=== PATIENT | female | born 1995 | race Caucasian/White ===

== ENCOUNTER 2017-06-28 18:27 | Emergency (ER) | payer OTHER ==
[~2017-06-28] VITALS: Ht 160 cm; Wt 81.7 kg
[~2017-06-28 18:27] MED LIST: DIFLUCAN200 MG PO; DOXYCYCLINE 10100 M1 PO; FLAGYL500 MG PO; IBUPROFEN 800800 M1 PO; OSELB75 PO; PHENERGAN 25 MG25 M1 PO
[2017-06-28] MEDS ORDERED: TYLENOL COLD &1 EACH PO (18:55)
[2017-06-28] MEDS ORDERED: IBUPROFEN 600600 M1 PO (18:55)
[2017-06-28 19:18] LABS: INFLUENZA A ANTIGEN None Detected (None Detect); INFLUENZA B ANTIGEN None Detected (None Detect)
[2017-06-28 19:39] VITALS: BP 112/72
== END 2017-06-28 19:40 | disposition home or self-care (01) ==
LOC: M.ERS 18:27
PROVIDERS: Nurse Practitioner Family
DX: J11.1 Influenza due to unidentified influenza virus with other respiratory manifestations (principal); F17.210 Nicotine dependence, cigarettes, uncomplicated; Z90.49 Acquired absence of other specified parts of digestive tract; Z98.890 Other specified postprocedural states; Z91.013 Allergy to seafood

== ENCOUNTER 2018-04-17 09:24 | Emergency (ER) | payer OTHER ==
[~2018-04-17] VITALS: Ht 162.6 cm; Wt 79.4 kg
[~2018-04-17 09:24] MED LIST changes: +IBUPROFEN 600600 M1 PO; +TYLENOL COLD &1 EACH PO
[2018-04-17 09:52] LABS: ABSOLUTE EOSINOPHILS 0.1 thou/uL (0.0-0.7); ABSOLUTE LYMPHOCYTES 1.1 thou/uL (0.8-5.3); ABSOLUTE MONOCYTES 0.3 thou/uL (0.0-1.2); BASOPHILS 0.9 %; LYMPHOCYTES 32.1 %; MCH 29.2 pg (26.0-34.0); MCV 86.1 fL (80.0-100.0); MONOCYTES 9.6 %; NUCLEATED RBCS 0 /100WBC; PLATELET COUNT* 132 thou/uL (150-400); POLYS 55.4 %; RBC 5.12 mil/uL (4.20-5.00); RDW-CV 12.6 % (10.5-14.5); WBC 3.6 thou/uL (4.0-11.0)
[2018-04-17 10:00] LABS: ANION GAP 6 mmol/L (7-16); BUN 10 mg/dL (7-18); CALCIUM 8.3 mg/dL (8.5-10.1); CHLORIDE 103 mmol/L (98-107); CO2 28 mmol/L (21-32); CREATININE 0.6 mg/dL (0.6-1.3); GLUCOSE 100 mg/dL (70-99); POTASSIUM 3.6 mmol/L (3.5-5.1); SODIUM 137 mmol/L (136-145)
[2018-04-17 10:07] LABS: ALBUMIN 3.5 g/dL (3.4-5.0); ALKALINE PHOSPHATASE 66 U/L (46-116); LIPASE 133 U/L (73-393); MAGNESIUM 1.7 mg/dL (1.8-2.4); SGOT 28 U/L (15-37); SGPT 19 U/L (30-65); TOTAL BILIRUBIN 0.2 mg/dL (<0.1-1.0); TOTAL PROTEIN 6.8 g/dL (6.4-8.2); TROPONIN-I LEVEL <0.06 ng/mL (<0.06)
[2018-04-17] MEDS ORDERED: IBUPROFEN 800800 M1 PO (11:05)
[2018-04-17] MEDS ORDERED: FLEXERIL PO (11:05)
[2018-04-17] MEDS ORDERED: TESSALON PERLE100 MG PO (11:05)
[2018-04-17 11:18] VITALS: BP 116/84
--- NOTE | 2018-04-19 11:10 | EKG ---
[place] [address] ELECTROCARDIOGRAM REPORT Name: BOOGIEWEST [place] Room: [facility]#: [id number] Admission: 04/17/18 Attend Phys: Discharge: 04/17/18 Date of : [birth year] Report #: [id number] THIS REPORT FOR: //name// [facility] ED Test Date: 2018-04-17 Test Time: 09:30:03 Pat Name: WEST HYMAN Department: Room: Gender: F Vamp Maker: VERITO : 1995 Requested By: James Noel Order Number: [id number] MD: Nathaniel Child Measurements Intervals [place] Rate: 95 P: 54 W[place]: 130 QRS: 15 QRSD: 83 T: 28 QT: 336 QTc: 423 Interpretive Statements Sinus rhythm Baseline wander in lead(s) V2,V3,V5,V6 No previous ECG available for comparison Electronically Signed On 04-19-2018 11:09:52 [employer] TE[employer] by Nathaniel Child [email or web address] <ELECTRONICALLY SIGNED> By: Nathaniel Child MD, [facility] 04/19/18 1109 D: [id number] Nathaniel Child MD, FAC /EPI
== END 2018-04-17 11:19 | disposition home or self-care (01) ==
LOC: M.ERS 09:24
PROVIDERS: Emergency Medicine Emergency Medical Services
DX: J40 Bronchitis, not specified as acute or chronic (principal); F17.210 Nicotine dependence, cigarettes, uncomplicated; Z91.030 Bee allergy status; Z90.49 Acquired absence of other specified parts of digestive tract; Z98.890 Other specified postprocedural states

== ENCOUNTER 2020-03-05 09:17 | Emergency (ER) | payer OTHER ==
[~2020-03-05] VITALS: Ht 160 cm; Wt 79.4 kg
[~2020-03-05 09:17] MED LIST changes: +FLEXERIL PO; +TESSALON PERLE100 MG PO
[2020-03-05 09:50] LABS: ABSOLUTE EOSINOPHILS 0.1 thou/uL (0.0-0.7); ABSOLUTE MONOCYTES 0.4 thou/uL (0.0-1.2); ABSOLUTE NEUTROPHILS 4.5 thou/uL (1.6-8.1); BASOPHILS 0.8 %; EOSINOPHILS 2.4 %; HEMATOCRIT 40.6 % (37.0-47.0); HEMOGLOBIN 14.3 gm/dL (12.0-15.0); LYMPHOCYTES 16.6 %; MCH 30.1 pg (26.0-34.0); MCHC 35.1 g/dL (28.0-37.0); MCV 85.7 fL (80.0-100.0); MONOCYTES 7.2 %; MPV 9.3 fl. (7.2-11.1); NUCLEATED RBCS 0 /100WBC; PLATELET COUNT* 204 thou/uL (150-400); RBC 4.74 mil/uL (4.20-5.00); RDW-CV 12.5 % (10.5-14.5); WBC 6.1 thou/uL (4.0-11.0)
[2020-03-05 10:02] LABS: CALCIUM 8.8 mg/dL (8.5-10.1); CREATININE 0.8 mg/dL (0.6-1.3); POTASSIUM 3.8 mmol/L (3.5-5.1)
[2020-03-05 10:12] LABS: ALBUMIN 4.3 g/dL (3.4-5.0); MAGNESIUM 1.8 mg/dL (1.8-2.4); TOTAL BILIRUBIN 0.8 mg/dL (<0.1-1.0); TOTAL PROTEIN 7.5 g/dL (6.4-8.2)
[2020-03-05 10:19] LABS: APTT 23.7 Seconds (25.0-31.3); INR 1.1; PROTIME 10.9 Seconds (9.20-11.50)
[2020-03-05] MEDS ORDERED: NORCO 5-325 TA1 EAC2 PO (11:03)
[2020-03-05] MEDS ORDERED: PROTONIX40 M2 PO (11:03)
[2020-03-05 11:26] VITALS: BP 115/72
--- NOTE | 2020-03-05 15:30 | EKG ---
[place] [address] ELECTROCARDIOGRAM REPORT Name: WEST HYMAN Room: [facility]#: [id number] Admission: 03/05/20 Attend Phys: Discharge: 03/05/20 Date of : [birth year] Date of Service: 03/05/20922 Report #: [id number] THIS REPORT FOR: //name// [facility] ED Test Date: 2020-03-05 Test Time: 09:23:33 Pat Name: WEST HYMAN Department: Room: Gender: Employee Benefits Specialist: : 1995 Requested By: James Noel Order Number: [id number] MD: Christopher Burger Measurements Intervals [place] Rate: 67 P: 70 SD: 143 QRS: 42 QRSD: 96 T: 20 QT: 360 QTc: 380 Interpretive Statements Sinus rhythm Baseline wander in lead(s) V1 Compared to ECG 04/17/2018 09:30:03 No significant changes Electronically Signed On 03-05-2020 15:29:56 CDT by Christopher Burger [email or web address] <ELECTRONICALLY SIGNED> By: Christopher Burger MD, [facility] 03/05/20 1529 2 Christopher Burger MD, [facility] /EPI
== END 2020-03-05 11:27 | disposition home or self-care (01) ==
LOC: M.ERS 09:17
PROVIDERS: Emergency Medicine Emergency Medical Services
DX: R07.89 Other chest pain (principal); F17.210 Nicotine dependence, cigarettes, uncomplicated; Z98.890 Other specified postprocedural states; Z90.49 Acquired absence of other specified parts of digestive tract; Z91.030 Bee allergy status

== ENCOUNTER 2021-06-08 23:00 | Emergency (ER) | payer OTHER ==
[~2021-06-08] VITALS: Ht 157.5 cm; Wt 90.7 kg
[~2021-06-08 23:00] MED LIST changes: +NORCO 5-325 TA1 EAC2 PO; +PROTONIX40 M2 PO
[2021-06-08 23:10] VITALS: BP 119/66
[2021-06-08] MEDS ORDERED: ZOLOFT50 M1 PO (23:13)
== END 2021-06-09 02:13 | disposition left against medical advice (07) ==
LOC: M.ERS 23:00
DX: R10.9 Unspecified abdominal pain (principal); Z53.21 Procedure and treatment not carried out due to patient leaving prior to being seen by health care provider